=== PATIENT | female | born 1980 | race Caucasian/White ===

== ENCOUNTER → 2023-01-21 13:02 | Outpatient (BNVA) | payer BC, SELFPAY | PROVIDERS: Visit Provider Nurse Practitioner Family | DX: R10.2 Pelvic and perineal pain (principal); N39.0 Urinary tract infection, site not specified | CPT/HCPCS: 81003 ==

== ENCOUNTER 2023-01-31 15:55 | Outpatient (CLI) | payer BC, SELFPAY ==
--- NOTE | 2023-01-31 16:00 | MM_ITS ---
WS: [id number] SCREENING DIGITAL BREAST TOMOSYNTHESIS MAMMOGRAM WITH CAD HISTORY: SCREENING COMPARISON: None available. Bilateral CC and MLO with tomosynthesis and synthetic mammography submitted. Computer aided detection analyzed. Breast composition: The breasts are heterogeneously dense, which may obscure small masses. Focal asym metry with mild distortion and increased density in the anterior RIGHT breast just below the nipple l ine. There is an additional asymmetry in the medial breast which probably does not correspond to the finding on the lateral projection. Both of these areas need spot compression. Benign calcifications L EFT breast. IMPRESSION: MM/[place] [id number] BI-RADS: 0-Incomplete: Need additional imaging evaluation FOLLOW UP: Need Additional Imaging RIGHT breast: Spot compression views (CC and MLO). True ML. Ultrasound to follo w if abnormality persists.
== END 2023-01-31 15:56 | disposition home or self-care (01) ==
LOC: MOBLMAM 16:02
PROVIDERS: PCP Nurse Practitioner Family; Visit Provider Nurse Practitioner Family
DX: Z12.31 Encounter for screening mammogram for malignant neoplasm of breast (principal)
CPT/HCPCS: 77063; 77067